=== PATIENT | male | born 1945 | race Caucasian/White ===

== ENCOUNTER 2025-05-21 09:13 | Day surgery (SDC) | payer MEDICARE, OTHER ==
[2025-05-20 13:50] LABS: MEAN PLATELET VOLUME 8.2 FL (7.4-10.4); RED CELL DISTRIBUTION WIDTH 14.5 % (11.5-14.5)
[2025-05-20 14:02] LABS: APTT 32 SECONDS (22-32); INR 1.1 INR
[2025-05-20 14:04] LABS: CREATININE 1.59 MG/DL (0.60-1.10); LDL CHOLESTEROL 54 MG/DL (50-100); TOTAL CARBON DIOXIDE 31.3 MMOL/L (24-32); eGFR 42 ML/MIN
[2025-05-20 14:28] LABS: CHOL/HDL RATIO 3.5 (0.00-4.99)
[~2025-05-21] VITALS: Ht 182.9 cm; Wt 103.3 kg
[~2025-05-21 09:13] MED LIST: AMIO200T76 PO; AMLO10TA13 PO; APIX5TAB3 PO; ATOR-2 PO; BUDE10.2 INH; CHOL500061 PO; DULO30CA52 PO; EZET10TA48 PO; FURO20TA4 PO; GEMF600T89 PO; GUAI600T45 PO; HYDR25TA90 PO; IPRA3AMP9 IH; LANTUS SQ; LORA10CA PO; TAMS-55 PO; TOBR5DRO7 EACHEYE; VITAMIN B12 PO
[2025-05-21] MEDS ORDERED: VITE1000C PO (09:38)
[2025-05-21] MEDS ORDERED: fentaNYL/PF 50MCG/1 ML 2ML syringe IV ONE (09:50)
[2025-05-21] MEDS ORDERED: MIDAZolam 1mg/ml 10ml vial IV ONE (09:50)
[2025-05-21] MEDS: normal saline 1000ml 1,000 ML IV SCH (09:58)
[2025-05-21 10:00] VITALS: BP 140/80; PULSE 61; RESP 19; TEMP 97.9; O2SAT 95
[2025-05-21] MEDS ORDERED: fentaNYL/PF 50MCG/1 ML 2ML syringe ONE (12:21)
[2025-05-21] MEDS ORDERED: midazolam 1 mg/ML 2ml injection ONE ×2 (12:21→12:56)
[2025-05-21] MEDS ORDERED: atropine 0.1mg/ml 10ml syringe ONE (12:21)
[2025-05-21] MEDS ORDERED: amiodarone 50MG/ML inj IV ONE (12:21)
[2025-05-21 13:30] VITALS: BP 127/67; PULSE 66; RESP 12; O2SAT 92
--- NOTE | 2025-05-21 13:32 | ELECTROCARDIOGRAPH REPORT ---
[facility] Test Date: 2025-05-21 Test Time: 13:29:15 Pat Name: MATA REYNOSO Department: [facility] Patient ID: [facility]-[id number] Room: Gender: M Fence Erector: MIKO : 1945 Requested By: BRENDA RUDOLPH Order Number: [id number] Reading MD: Dr. KATHY Zamarripa Measurements Intervals [place] Rate: 66 P: 74 SD: 279 QRS: 77 QRSD: 88 T: 146 QT: 426 QTc: 447 Interpretive Statements Sinus rhythm Prolonged SD interval Probable left atrial enlargement Nonspecific T abnormalities, lateral leads Electronically Signed On 05-21-2025 18:44:[address] KATHY Zamarripa Please click the below link to view image of tracing.
[2025-05-21 13:45] VITALS: BP 126/68; PULSE 67; RESP 12; O2SAT 92
[2025-05-21 14:00] VITALS: BP 133/77; PULSE 69; RESP 17; O2SAT 94
[2025-05-21 14:13] VITALS: BP 136/75; PULSE 66; RESP 18; O2SAT 95
== END 2025-05-21 14:15 | disposition home or self-care (01) ==
LOC: SSTAY O 09:13
PROVIDERS: ATTEND Student in an Organized Health Care Education/Training Program
DX: I48.91 Unspecified atrial fibrillation (principal); I48.92 Unspecified atrial flutter; I12.9 Hypertensive chronic kidney disease with stage 1 through stage 4 chronic kidney disease, or unspecified chronic kidney disease; E11.22 Type 2 diabetes mellitus with diabetic chronic kidney disease; N18.9 Chronic kidney disease, unspecified; I25.10 Atherosclerotic heart disease of native coronary artery without angina pectoris; E78.00 Pure hypercholesterolemia, unspecified; G47.33 Obstructive sleep apnea (adult) (pediatric); Z79.899 Other long term (current) drug therapy; Z88.8 Allergy status to other drugs, medicaments and biological substances
CPT/HCPCS: 36415; 80048; 80061; 83695; 85025; 85610; 85730; 92960; 93005; J2250; J3010; J7030; Z7610; 99152; J0282; J0461